=== PATIENT | male | born 1960 | race Caucasian/White ===

== ENCOUNTER 2018-12-22 20:51 | Inpatient (IN) | payer OTHER ==
[~2018-12-22] VITALS: Ht 182.9 cm; Wt 91.6 kg
--- NOTE | 2018-12-22 20:51 | NUR ---
Placed in room 08 . Placed on assistant brand manager, blood pressure machine and pulse oximeter. To gown for exam. Side rails up.
--- NOTE | 2018-12-22 20:52 | NUR ---
ER Dr. Addison at bedside examining patient.
--- NOTE | 2018-12-22 20:53 | NUR ---
Pt AAOx4 BIB ALS c/o difficulty breathing and substernal chest pain x 1 hour. Denies n/v/d/blurred vision/headache. Skin pink dry and warm, speaking in full sentences. at bedside. Will continue to monitor.
[2018-12-22 21:00] VITALS: BP_SYST 131
[2018-12-22] MEDS ORDERED: ONDANSETRON HCL 4 MG/2 ML VIAL IVP ONE (21:15)
[2018-12-22] MEDS ORDERED: ASPIRIN 81 MG TAB.CHEW PO ONE (21:15)
[2018-12-22] MEDS ORDERED: MORPHINE 2 MG/ML INJ. SYRINGE IVP ONE (21:15)
[2018-12-22 21:25] LABS: BASOPHILS # (AUTO) 0.1 K/uL (0.0-0.2); BASOPHILS % (AUTO) 0.9 % (0.0-2.0); EOSINOPHILS # (AUTO) 0.1 K/uL (0.0-0.4); EOSINOPHILS % (AUTO) 1.1 % (0.0-4.0); HEMATOCRIT 51.7 % (36-54); HEMOGLOBIN 17.9 g/dL (14.0-18.0); MEAN CORPUSCULAR HEMOGLOBIN 31 pg (27-31); MEAN CORPUSCULAR HGB CONC 35 % (32-36); MEAN CORPUSCULAR VOLUME 90 fL (79.0-98.0); MONOCYTES # (AUTO) 0.9 K/uL (0.0-1.0); MONOCYTES % (AUTO) 8.1 % (1.7-9.3); NEUTROPHILS # (AUTO) 7.6 K/uL (1.8-7.7); NEUTROPHILS % (AUTO) 70.9 % (40.0-70.0); PLATELET COUNT (AUTO) 165 K/uL (130-430); RED BLOOD CELL COUNT(AUTO) 5.78 MIL/uL (4.2-6.2); RED CELL DISTRIBUTION WIDTH 14.5 % (9.0-15.0); WHITE BLOOD COUNT (AUTO) 10.8 K/uL (4.8-10.8)
[2018-12-22 21:36] LABS: CALCIUM 8.5 mg/dL (8.4-11.0); CREATININE 1.15 mg/dL (0.55-1.30); POTASSIUM 3.9 mmol/L (3.5-5.1)
[2018-12-22 21:40] LABS: ALBUMIN 3.7 g/dL (3.4-4.8); TOTAL BILIRUBIN 0.7 mg/dL (0.0-1.0)
[2018-12-22 21:47] LABS: INR 1.1 (0.80-1.20); PROTHROMBIN TIME 10.8 SECS (9.5-12.5)
--- NOTE | 2018-12-22 23:15 | NUR ---
Pt taken to radiology in stable condition
[2018-12-22] MEDS ORDERED: IOHEXOL 100 ML IV ONE (23:27)
--- NOTE | 2018-12-22 23:45 | NUR ---
Pt returned from radiology in stable condition
[2018-12-23] MEDS ORDERED: ASPI-1153 PO (00:33)
[2018-12-23] MEDS ORDERED: ATOR40TA68 PO (00:33)
[2018-12-23] MEDS ORDERED: FURO-149 PO (00:33)
[2018-12-23] MEDS ORDERED: LOSA25TA3 PO (00:33)
--- NOTE | 2018-12-23 00:34 | NUR ---
Medication reconciliation completed with information provided by list of medications from . Any prior medication reconciliation on file was reviewed and corrected.
--- NOTE | 2018-12-23 00:42 | NUR ---
Per [facility], no beds available at this time for admitting. Will call back.
[2018-12-23] MEDS ORDERED: ONDANSETRON HCL 4 MG/2 ML VIAL IVP PRN (00:45)
[2018-12-23] MEDS ORDERED: MORPHINE 2 MG/ML INJ. SYRINGE IVP PRN (00:45)
[2018-12-23] MEDS ORDERED: NITROGLYCERIN 0.4 MG TAB.SUBL SL PRN (00:45)
--- NOTE | 2018-12-23 01:16 | NUR ---
Pt requests morphine for chest pain. Dr. Addison notified.
--- NOTE | 2018-12-23 01:41 | NUR ---
ADMIT NOTE Received pt from ER to the floor with a diagnosis of chest pain rule out [place]. Admission process initiated. patient oriented to pain management, safety and call light-teach back done.
[2018-12-23 01:44] VITALS: BP_SYST 139
--- NOTE | 2018-12-23 01:51 | NUR ---
aPatient will be admitted to care of [facility]. Admitted to Telemetry unit. Will go to room 119B. Belongings list completed. Summary report printed. Report will be given at bedside.
[2018-12-23] MEDS ORDERED: MORPHINE 2 MG/ML INJ. SYRINGE IVP ONE (02:00)
--- NOTE | 2018-12-23 02:02 | NUR ---
Consultation Paged Reason for Consultation: Chest Pain Rule Out [place] Was consult called: Y Person who was notified: Kamini Consulting Physician: Dr. Crockett Digital Media Designer Ordering Physician: Dr. Rodriguez
--- NOTE | 2018-12-23 02:17 | NUR ---
Initial RN notes Received pt from ED via spring. Pt AAOx4, no s/s distress noted. Pt denies any pain at this time. IV saline lock L. AC 20G clear and patent. Instructed production potter light use, pt verbalized understanding. Call light within reach. To monitor.
--- NOTE | 2018-12-23 05:28 | NUR ---
Rounds Pt asleep, no s/s distress or discomforted noted. Call light within reach. Bed low, locked in position. To monitor.
--- NOTE | 2018-12-23 06:05 | NUR ---
Closing notes/HR 42 Pt asleep on his right side. HR 42, up to 77 when awaken. Pt denies any dizziness or lightheadedness. IV saline lock L. AC 20G clear and patent. Call light within easy reach. Safety measures in place. To endorse to AM nurse.
--- NOTE | 2018-12-23 07:33 | NUR ---
rn opening note Report was endorsed by night nurse. Patient is awake and alert no signs of any distress,breathing is equal and non labored. Patient educated lead ruby on rails developer light for assistance. Call light is with patient. Patient has complaints at this time. Patient shows no signs of any distress, breathing is equal and non labored.
[2018-12-23 08:34] VITALS: BP_SYST 113
--- NOTE | 2018-12-23 09:13 | NUR ---
CONSULTATION PAGED/CALLED Reason for Consultation: CHEST PAIN Person Who was Notified: SPOKE TO JACQUI FROM OFFICE. Consulting Physician: Manager Presentation Specialty: CARDIO Ordering Physician:
--- NOTE | 2018-12-23 09:45 | NUR ---
rn rounding Patient is awake and alert, laying in bed. Patient has no complaints at this time. Patient educated to use call light for assistance. Call light is with patient. Patient has no other needs at this time. will continue to monitor.
--- NOTE | 2018-12-23 11:16 | NUR ---
rn rounding Patient is laying in bed no signs of any distress,breathing is equal and non labored. Patient has no complaints at this time. Faxing over signed medical release form to [facility] where patient states he has his most recent angiogram done. Patient has call light with him educated to use for assistance. no other needs at this time. will continue to monitor.
[2018-12-23 12:25] VITALS: BP_SYST 117
[2018-12-23] MEDS ORDERED: ACETAMINOPHEN 325 MG TABLET PO PRN (13:30)
--- NOTE | 2018-12-23 13:49 | NUR ---
rn rounding Patient appears to be resting with both eyes close no signs of any distress, breathing is equal and non labored. Patient has all safety precautions in place. Call light is with patient. no other needs at this time. will continue to monitor.
--- NOTE | 2018-12-23 14:15 | NUR ---
Social Work: Meet with pt., BILLIE AUTOMOBILE MECHANIC RADIATOR met with pt. who was able to easily participate in this interview. Pt. stated he is here because he was having chest pains. He stated he was at another hospital and know from that visit, he needs an Aortic Valve. He stated he did not get this procedure because he "Chickened Out" . AUTOMOBILE MECHANIC RADIATOR asked pt. when he sees his Dr. to ask him what will happen if he does not get this procedure. Pt. stated he knows without this medical intervention, he will . Pt. was not sure if he had any paperwork already re. a durable power of attny. AUTOMOBILE MECHANIC RADIATOR gave him a blank packet. He stated he is unable to fill it out, but when his visitor, friend Trang Hernandez comes to visit him, he will have her assist him in filling it out. AUTOMOBILE MECHANIC RADIATOR is available if they have any questions re. form. Pt. stated he will probably make Jamee Obando who resides in [place]. the [facility]. Pt. stated he has never been Dx. as having any mental health issues. Pt. denied ever having any suicidal ideations and stated he did not need any mental health services. AUTOMOBILE MECHANIC RADIATOR will remain available as needed.
--- NOTE | 2018-12-23 15:02 | NUR ---
rn rounding Patient is awake and alert laying in bed no signs of any distress, breathing is equal and non labored. Patient has all safety precautions in place. will continue to monitor. call light is with him educated to use for assistance.
--- NOTE | 2018-12-23 15:51 | NUR ---
Pain medication Patient complains of pain medicated per order. Patient educated on side effects, educated to use call light for assistance, patient has call light with him. Verbalized understanding. Patient has no other needs at this time. all safety precautions in place. will continue to monitor.
[2018-12-23 16:29] VITALS: BP_SYST 115
--- NOTE | 2018-12-23 18:25 | NUR ---
rn closing note Patient is awake and alert laying in bed no signs of any distress,breathing is equal and non labored. Patient is has no complaints at this time. Patient has call light with him educated to use for assistance. Patient has no other needs at this time. all safety precautions in place.
[2018-12-23 20:40] VITALS: BP_SYST 146
--- NOTE | 2018-12-23 20:40 | NUR ---
Opening notes Pt awake, resting quietly in bed. No s/s distress noted. VSS, no c/o pain. Pt requesting sleeping pill. Will page MD. Call light within reach. To monitor.
--- NOTE | 2018-12-23 20:44 | NUR ---
Paged for sleeping pill.
--- NOTE | 2018-12-23 20:55 | NUR ---
MD called back Received call from Dr. Rodriguez and per MD will enter order for sleeping pill.
[2018-12-24 00:30] VITALS: BP_SYST 113
--- NOTE | 2018-12-24 00:30 | NUR ---
Rounds Pt asleep, easily arousable. VSS. No c/o pain. Call light within reach. To monitor.
--- NOTE | 2018-12-24 03:30 | NUR ---
Rounds Pt asleep, no s/s distress or discomfort noted. Call light within reach. To monitor.
[2018-12-24 06:27] LABS: CHOLESTEROL 185 mg/dL (<200); HDL CHOLESTEROL 36 mg/dL (>45); LDL CHOLESTEROL 72 mg/dL (<100); TRIGLYCERIDES 343 mg/dL (30-150)
--- NOTE | 2018-12-24 06:30 | NUR ---
Closing notes Pt asleep, respirations even and unlabored. Call light within reach. Bed low, locked, siderails up x2. All needs met throughout the night. To endorse to AM nurse.
--- NOTE | 2018-12-24 08:10 | NUR ---
Cardio Alert/oriented x4 denies any chest pain, discussed to patient managing diet due to elevated triglycerides verbalized understanding, plan of care/medication discussed to patient ,due meds given , needs attended.
[2018-12-24 08:13] VITALS: BP_SYST 123
[2018-12-24] MEDS ORDERED: ATORVASTATIN 20 MG TABLET PO SCH (09:00)
[2018-12-24] MEDS ORDERED: LOSARTAN POTASSIUM 25 MG TABLET PO SCH (09:00)
[2018-12-24] MEDS ORDERED: ASPIRIN 81 MG TABLET(ECOTRIN) PO SCH (09:00)
[2018-12-24] MEDS ORDERED: FAMOTIDINE 20 MG TABLET PO SCH (09:00)
[2018-12-24 11:23] VITALS: BP_SYST 110
--- NOTE | 2018-12-24 11:24 | NUR ---
PATIENT RESTING: Patient resting quietly. No acute distress noted. Vital signs within normal range.
[2018-12-24 14:47] VITALS: BP_SYST 115
[2018-12-24 14:51] VITALS: BP_SYST 115
--- NOTE | 2018-12-24 15:20 | NUR ---
Discharged home accompanied by the brother, denies any chest pain, vitals sign within normal limit.
== END 2018-12-24 15:20 | disposition home or self-care (01) | DRG 206 ==
LOC: SED 20:51 → STU 12-23 00:37
PROVIDERS: ADMIT Internal Medicine; ATTEND Internal Medicine
DX: M94.0 Chondrocostal junction syndrome [Tietze] (principal); I10 Essential (primary) hypertension; I35.2 Nonrheumatic aortic (valve) stenosis with insufficiency; I77.810 Thoracic aortic ectasia; M17.12 Unilateral primary osteoarthritis, left knee; Z86.73 Personal history of transient ischemic attack (TIA), and cerebral infarction without residual deficits; Z87.891 Personal history of nicotine dependence; Z95.2 Presence of prosthetic heart valve; Z88.2 Allergy status to sulfonamides; Z79.82 Long term (current) use of aspirin; Z79.899 Other long term (current) drug therapy
CPT/HCPCS: 36415; 71045; 71260-TC; 80053; 80061; 83880; 84484; 85025; 85379; 85610-TC; 85730-TC; 93005; 93306; 96374; 96375; 99285; G0378; J2270; J2405; J7030; Q9967